=== PATIENT | female | born 2005 | race Hispanic/Latino ===

== ENCOUNTER 2024-06-26 17:16 | Emergency (ER) | payer SELFPAY ==
[~2024-06-26] VITALS: Ht 165.1 cm; Wt 74.8 kg
[2024-06-26 18:11] LABS: APPEARANCE,URINE CLOUDY (CLEAR); BILIRUBIN,URINE NEGATIVE (NEGATIVE); COLOR,URINE YELLOW (YELLOW); GLUCOSE, URINE (UA) NEGATIVE (NEGATIVE); KETONES,URINE NEGATIVE (NEGATIVE); LEUKOCYTE ESTERASE ,URINE 500 Leu/uL (NEGATIVE); NITRATE,URINE 1+ (NEGATIVE); OCCULT BLOOD,URINE NEGATIVE (NEGATIVE); PROTEIN,URINE 20 mg/dL (NEGATIVE)
[2024-06-26 18:13] LABS: HCG,QUALITATIVE URINE NEGATIVE (NEGATIVE)
[2024-06-26 18:17] LABS: BACTERIA,URINE FEW /HPF (None Seen); MUCUS,URINE FEW LPF (None Seen); SQUAMOUS EPITHELIAL CELL,UR MANY /HPF (0-2); WBC,URINE TNTC /HPF (0-1)
[2024-06-26] MEDS ORDERED: CEPH500T PO (18:48)
[2024-06-26] MEDS: CEFTRIAXONE 1G VIAL IVPB ONE (19:24)
[2024-06-26] MEDS: AZITHROMYCIN 250 MG TABLET PO ONE (19:24)
[2024-06-26 19:29] VITALS: BP 121/84; PULSE 82; RESP 20; O2SAT 100
== END 2024-06-26 19:32 | disposition home or self-care (01) ==
LOC: EDH 17:16
DX: N39.0 Urinary tract infection, site not specified (principal); Z20.2 Contact with and (suspected) exposure to infections with a predominantly sexual mode of transmission
CPT/HCPCS: 99283; 96374; 87086 ×2; 87186; 87491; 87591; 81001; 81025; J0696